=== PATIENT | female | born 1990 | race Caucasian/White ===

== ENCOUNTER 2019-11-11 19:33 | Emergency (ER) | payer OTHER ==
[~2019-11-11] VITALS: Ht 271.8 cm; Wt 70.8 kg
[~2019-11-11 19:33] MED LIST: AMOX1TAB12 PO; TESSALON200 MG PO
== END 2019-11-11 20:59 | disposition home or self-care (01) ==
LOC: ER 19:33
DX: S50.12XA Contusion of left forearm, initial encounter (principal); W01.0XXA Fall on same level from slipping, tripping and stumbling without subsequent striking against object, initial encounter; Y93.89 Activity, other specified; Y92.091 Bathroom in other non-institutional residence as the place of occurrence of the external cause; Y99.8 Other external cause status

== ENCOUNTER 2020-04-18 14:26 | Emergency (ER) | payer OTHER ==
[~2020-04-18] VITALS: Ht 177.8 cm; Wt 72.6 kg
== END 2020-04-18 16:10 | disposition home or self-care (01) ==
LOC: ER 14:26
DX: S90.122A Contusion of left lesser toe(s) without damage to nail, initial encounter (principal); W22.09XA Striking against other stationary object, initial encounter; Y93.01 Activity, walking, marching and hiking; Y92.018 Other place in single-family (private) house as the place of occurrence of the external cause; Y99.8 Other external cause status